=== PATIENT | female | born 1960 | race Caucasian/White ===

== ENCOUNTER → 2016-11-23 | Outpatient (CLI) | payer OTHER ==
[~2016-11-23] MED LIST: ASPIRIN 81MG TA81 MG PO; AUGMENTIN1 TA2 PO; HYDREA500 MG PO; LEVAQUIN 750 M750 MG PO; MUCINEX600 M1 PO; PREMARIN0.45 MG PO; SULAR20 MG PO; SYNTHROID 0.00.05 MG PO; SYNTHROID 0.10.15 MG PO; VIIBRYD10 MG PO; VIIBRYD20 MG PO; WELLBUTRIN 75MG75 MG PO; WELLBUTRIN XL150 MG PO; XANAX 0.5MG TA0.5 MG PO
[2016-11-23 08:58] LABS: HEMOGLOBIN 13.1 g/dL (12.2-16.2); LYMPH # 2.9 K/mm3 (0.7-4.5); LYMPH % 33.1 % (10-50.0)
[2016-11-23 09:55] LABS: BUN 14 mg/dL (7-18)
[2016-11-23 09:58] LABS: GFR (ESTIMATED) 65 ML/MIN (59-)
--- NOTE | 2016-11-23 13:27 | RADIOLOGY REPORT PS360 ---
CHEST(2 VIEWS-NOT PORTABLE) HISTORY: PRE OP COMPARISON: None available FINDINGS: The cardiomediastinal silhouette and pulmonary vascularity are within normal limits. The lungs are clear without infiltrates, suspicious nodules, or pleural effusions. No acute bony abnormalities. IMPRESSION: Negative chest, no acute finding
== END ==
LOC: RT 08:29
PROVIDERS: Orthopaedic Surgery
DX: M77.11 Lateral epicondylitis, right elbow (principal); Z01.818 Encounter for other preprocedural examination

== ENCOUNTER → 2017-10-22 | Outpatient (CLI) | payer OTHER ==
[2017-10-22 13:50] LABS: HEMOGLOBIN 12.2 g/dL (12.2-16.2); LYMPH # 1.6 K/mm3 (0.7-4.5); LYMPH % 25.4 % (10-50.0)
[2017-10-22 14:11] LABS: BUN 18 mg/dL (7-18); FREE THYROXIN INDEX 6.3 ug/dl (5.93-13.13)
[2017-10-22 14:14] LABS: GFR (ESTIMATED) 52 ML/MIN (59-)
[2017-10-23 08:50] LABS: Vitamin D, 25-Hydroxy 36.5 ng/mL (30.0-100.0)
== END ==
LOC: CARL-LAB 08:10
PROVIDERS: Internal Medicine Adolescent Medicine
DX: E03.9 Hypothyroidism, unspecified (principal); E53.8 Deficiency of other specified B group vitamins; E55.9 Vitamin D deficiency, unspecified; M19.049 Primary osteoarthritis, unspecified hand